=== PATIENT | female | born 1955 | race Caucasian/White ===

== ENCOUNTER 2017-12-04 15:10 | Emergency (ER) | payer BC ==
[~2017-12-04] VITALS: Ht 154.9 cm; Wt 53.2 kg
[2017-12-04 15:23] VITALS: BP 153/96
== END 2017-12-04 16:21 | disposition home or self-care (01) ==
LOC: ER 15:11
DX: S43.004A Unspecified dislocation of right shoulder joint, initial encounter (principal); W22.8XXA Striking against or struck by other objects, initial encounter; Y93.16 Activity, rowing, canoeing, kayaking, rafting and tubing; Y92.828 Other wilderness area as the place of occurrence of the external cause; Y99.9 Unspecified external cause status
CPT/HCPCS: 23650; 73030; 99284